=== PATIENT | female | born 1995 | race Caucasian/White ===

== ENCOUNTER 2019-07-28 09:27 | Emergency (ER) | payer SELFPAY ==
[2019-07-28 09:31] VITALS: BMI 24.3
--- NOTE | 2019-07-28 09:46 | XRR_ITS ---
PROCEDURE INFORMATION: Exam: XR Left Hand Exam date and time: 07/28/2019 10:09 AM Age: 24 years old Clinical indication: Injury or trauma; Injury history: Wood splitter; Initial encounter; Crushing; Hand; Left; Injury date: 07/28/19; Injury details: 3rd and 4th fingers; Additional info: Trauma to 3,4 finger TECHNIQUE: Imaging protocol: XR Left hand. Views: 3 or more views. COMPARISON: No relevant prior studies available. FINDINGS: Bones/joints: There are fractures of the tuft of the 3rd and 4th distal phalanges. There is a fracture at the base of the 4th distal phalanx which extends to the distal interphalangeal joint. The fractures are slightly displaced. No dislocation. Soft tissues: There is superficial soft tissue swelling of the distal 3rd and 4th fingers. XR/XR hand LT min 3V* [id number] IMPRESSION: 3rd and 4th distal phalangeal fractures.
--- NOTE | 2019-07-28 09:47 | ED_ITS ---
HPI - Wound/Laceration General: Chief Complaint: Wound/Laceration Stated Complaint: hand in log splitter Time Seen by Provider: 07/28/19 09:42 History of Present Illness: HPI narrative: Shannon is a 24-year-old white female who presents with a 30 minute history of accidentally getting her third and fourth fingers of her left hand caught in a wood splitter. She states she is up-to-date with her tetanus vaccine. Denies . Associated symptoms: Denies chills or fever(s) Review of Systems Const: Denies: fever or chills Eyes: Denies: change in vision ENMT: Denies: throat pain Card: Denies: chest pain or palpitations Resp: Denies: shortness of breath or productive cough : Denies: painful urination Musc: Reports: extremity pain; Denies: back pain Skin/Breast: Denies: rash Neuro: Denies: headache or numbness in extremities Psych: Denies: anxiety PFSH ED PFSH: Statuses (acute, chronic, etc) shown below reflect problem list status as previously entered and may not be historically accurate Social History Smoking and tobacco status: never smoked Physical Exam Const: COMMON NORMALS: average body habitus, oriented x3 and no limitations GENERAL APPEARANCE: in distress (mild distress due to pain) Eye: COMMON NORMALS: PERRL and EOMs intact bilaterally PUPIL: Yes PERRL Lymph: LYMPHATIC: no lymphadenopathy noted Chest: COMMONS NORMALS: inspection of chest normal Resp: COMMON NORMALS: normal respiratory effort and no retractions Cardio: COMMON NORMALS: regular rate and regular rhythm RATE: regular rate RHYTHM: regular rhythm Extremity: OTHER: The 4th finger nail is missing. Mild bruising noted to end of 3,4th fingers. I did offer the patient to put a suture at the base of her nail bed but she declines at this time. Copius saline irrigation of the wound. Dressings and Finger splints applied. Neuro: COMMON NORMALS: oriented x3 Course ED course: 0956: DIgital block of 3,4th fingers with 4cc of lidocaine per digit. x-ray shows fractures of distal phalanx of the third and fourth finger of the left hand. On examination there is no obvious closable wound, just crush injuries around the nail. Patient's fourth finger nail is completely avulsed and missing at this time. Her third finger nail is in place but appears to have a small subungual hematoma underneath it. Copious saline irrigation and dressings applied a finger. Contacted the single line referral to [facility] for hand surgeon follow-up for the patient. Dr. Peguero liaison inpatient given his number to call for follow-up. Patient states she is breast-feeding, discussed that hydrocodone and small to moderate doses is safe during breast-feeding. Vital Signs: Vital signs: Vital Signs Pulse Rate 60 07/28/19 11:42 Respiratory Rate 16 07/28/19 11:42 Blood Pressure 108/60 07/28/19 11:42 Pulse Oximetry 97 07/28/19 11:42 MDM - Wound/Laceration Differential Diagnosis: Wound Differential Diagnosis: Likely laceration (Laceration, crush injury, fracture) Imaging Data^: Other Xray: Attestation: I personally reviewed and interpreted this imaging study as follows: My impression: Fractures to distal phalanx of 3rd and 4th digit of the left hand. Discharge Plan Discharge Patient Disposition: Home, Self-Care Clinical Impression: Open fracture of tuft of distal phalanx of finger Crush injury of hand Qualifiers: Encounter type: initial encounter Laterality: left Qualified Code(s): S67.22XA - Crushing injury of left hand, initial encounter Condition: Stable Prescriptions: New [place] 5-325 mg tablet 1 tab PO Q6H PRN (Reason: pain) Qty: 15 RF: 0 Keflex 500 mg capsule 500 mg PO QID 7 Days Qty: 28 RF: 0 No Action iron 325 mg (65 mg iron) Tablet 325 mg PO DAILY RF: 0 multivitamin Tablet,Chewable 2 tab PO DAILY RF: 0 biotin 1 tab PO DAILY RF: 0 Referrals: Raul Callaway MD [Primary Care Provider] - Discharge Diet: Usual diet Discharge Activity: Limit activity as instructed Patient Instructions: Finger Fracture (ED), Toenail/Fingernail Removal (ED) Activity Restrictions/Additional Instructions: wash area with running water and soap twice a day and apply a thin layer of triple antibiotic ointment over nailbed and wounds. Cover with sterile dressing and apply finger splints. DO not soak in water. Use pain medication as needed as directed. Follow up with orthopedics in 2-[address] Nicole . CALL TODAY TO MAKE THIS APPOINTMENT Return if any problems. Discharge Date/Time: 07/28/19 11:44 Coding Level of Care Code ED Extractor Tender Raw Stock for Sin Peterson
[2019-07-28] MEDS: HYDROcodone-acetaminophen 5-325 mg Tablet 1 TAB PO ×2 (09:56→11:39)
[2019-07-28] MEDS: lidocaine 1% INJ 20 mL INTRADERMA (09:57)
[2019-07-28] MEDS: neomycin-poly-bacitracin oint 0.9 gm Pkt 1 APPLIC TOPICAL (11:25)
[2019-07-28 11:42] VITALS: BP 108/60; PULSE 60; RESP 16; O2SAT 97
== END 2019-07-28 12:38 | disposition home or self-care (01) ==
PROVIDERS: Emergency Provider Physician Assistant; Family Provider Obstetrics & Gynecology; PCP Obstetrics & Gynecology
DX: S62.635B Displaced fracture of distal phalanx of left ring finger, initial encounter for open fracture (principal); S62.633B Displaced fracture of distal phalanx of left middle finger, initial encounter for open fracture; S67.22XA Crushing injury of left hand, initial encounter; W31.89XA Contact with other specified machinery, initial encounter
CPT/HCPCS: 73130; 99281; J2001

== ENCOUNTER 2022-05-29 16:02 | Outpatient (CLI) | payer SELFPAY ==
[2022-05-29] VITALS (9 sets, daily range): BP systolic 107–115; BP diastolic 59–71; PULSE 75–86; RESP 15; BMI 27.2
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
[2022-05-29 17:53] LABS: Bilirubin Urine Neg (Negative); Blood Urine Neg (Negative); Glucose Urine UA Norm (Normal); Ketones Urine 1+ (Negative); Leukocyte Esterase Urine Negative (Negative); Nitrate Urine Negative (Negative); Protein Urine Neg (Negative); Urine Appearance Clear (CLEAR); Urine Color Yellow (Yellow); Urobilinogen Urine Neg (Negative); pH Urine 6 (5-7)
[2022-05-29 17:55] LABS: Amphetamines Screen Urine Negative (Negative); Barbiturates Screen Urine Negative (Negative); Benzodiazepines Screen Urine Negative (Negative); Cocaine Screen Urine Negative (Negative); Opiate Screen Urine Negative (Negative); PCP Screen Urine Negative (Negative); THC Screen Urine Positive (Negative)
[2022-05-29 17:56] LABS: Add Urine Culture? No; WBC Urine 0-4 /hpf (0-5)
[2022-05-29 19:08] LABS: HIV 1 & 2 Antibody Non-Reactive (Non-Reactiv); HIV 1 & 2 Antigen Non-Reactive (Non-Reactiv)
[2022-05-29 21:35] LABS: Rubella IgG 34.2 IU/mL (0.0-10.0)
[2022-05-29 21:38] LABS: Hepatitis B Surface Antigen Non-Reactive (Nonreactive); Hepatitis C Virus Antibody Non-Reactive (Nonreactive); Rapid Plasma Reagin Syphilis Nonreactive (Nonreactive)
== END 2022-05-29 18:48 | disposition home or self-care (01) ==
LOC: OPOB 16:02 → OBGYN 16:17
PROVIDERS: Family Provider Obstetrics & Gynecology; PCP Obstetrics & Gynecology; Visit Provider Obstetrics & Gynecology
DX: O09.33 Supervision of pregnancy with insufficient antenatal care, third trimester (principal); Z3A.31 31 weeks gestation of pregnancy; R10.9 Unspecified abdominal pain; Z91.410 Personal history of adult physical and sexual abuse
CPT/HCPCS: 12345; 36415; 59025; 80306; 81001; 86592; 86762; 86803; 86850; 86900; 87340; 87491; 87591; 87806; 99211

== ENCOUNTER → 2022-06-15 15:00 | Outpatient (BNVA) | payer SELFPAY | PROVIDERS: Family Provider Obstetrics & Gynecology; PCP Obstetrics & Gynecology; Visit Provider Family Medicine | DX: O09.93 Supervision of high risk pregnancy, unspecified, third trimester (principal); O26.899 Other specified pregnancy related conditions, unspecified trimester; R10.9 Unspecified abdominal pain; O09.30 Supervision of pregnancy with insufficient antenatal care, unspecified trimester; Z3A.31 31 weeks gestation of pregnancy; R30.0 Dysuria; Z51.81 Encounter for therapeutic drug level monitoring | CPT/HCPCS: 82950; 84443; 85025; 87077; 87086; 87184 ==

== ENCOUNTER 2022-06-30 07:14 | Outpatient (CLI) | payer MEDICAID, SELFPAY ==
--- NOTE | 2022-06-30 07:15 | US_ITS ---
WS: [id number] OBSTETRICAL ULTRASOUND COMPLETE HISTORY: Anatomy US COMPARISON: None available. Single intrauterine gestation in vertex. presentation. Cervix is partially obscured by the head. Normal amount of amniotic fluid surrounds the fetus. Placenta: Fundal and posterior. Placenta grade 1 Heart: 144 BPM. Four chambers are identified. RIGHT and LEFT outflow tracts are unremarkable. Anatomy: Intracranial structures and spine are normal. kidneys, stomach and urinary bladd er are unremarkable. Abdominal wall, three-vessel cord and cord insertion site are normal. 4 extremities are present. profile: Unremarkable. Gender: Not visualized. measurements: BPD = 8.7 cm = 35w2d HC = 33.7 cm = 38w4d AC = 32.0 cm = 35w6d FL = 7.3 cm = 37w2d EFW: 2951 g. Biometry is internally concordant. AGA by ultrasound: 36w3d FLACO by ultrasound: 07/25/2022 US/US OB >= 14 weeks fetus [id number] IMPRESSION: 1. Single intrauterine gestation of 36w3d with an FLACO of 07/25/2022. 2. Suboptimal gestational age for anatomy screening survey. The anatomy visualized is normal. No abnormalities are identified.
== END 2022-06-30 07:15 | disposition home or self-care (01) ==
LOC: RAD 07:14
PROVIDERS: Family Provider Obstetrics & Gynecology; PCP Obstetrics & Gynecology; Visit Provider Family Medicine
DX: Z36.89 Encounter for other specified antenatal screening (principal); Z3A.36 36 weeks gestation of pregnancy; O09.93 Supervision of high risk pregnancy, unspecified, third trimester
CPT/HCPCS: 76805; 84443

== ENCOUNTER → 2022-07-04 14:50 | Outpatient (BNVA) | payer MEDICAID, SELFPAY | PROVIDERS: Family Provider Obstetrics & Gynecology; PCP Obstetrics & Gynecology; Visit Provider Family Medicine | DX: O09.93 Supervision of high risk pregnancy, unspecified, third trimester (principal) | CPT/HCPCS: 87081 ==

== ENCOUNTER → 2022-07-25 16:25 | Outpatient (BNVA) | payer MEDICAID, SELFPAY | PROVIDERS: Family Provider Obstetrics & Gynecology; PCP Obstetrics & Gynecology; Visit Provider Family Medicine | DX: Z34.90 Encounter for supervision of normal pregnancy, unspecified, unspecified trimester (principal) | CPT/HCPCS: 80307 ==

== ENCOUNTER 2022-08-04 06:00 | Inpatient (IN) | payer SELFPAY ==
[2022-08-04] VITALS (24 sets, daily range): BP systolic 96–138; BP diastolic 55–79; PULSE 63–175; RESP 15–17; TEMP 36.6–36.9; O2SAT 83–98; BMI 28.1
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
[2022-08-04] MEDS: miSOPROStol 100 mcg tablet 25 MCG VAGINAL ×2 (08:16→12:18)
[2022-08-04 08:50] LABS: Amphetamines Screen Urine Negative (Negative); Barbiturates Screen Urine Negative (Negative); Benzodiazepines Screen Urine Negative (Negative); Cocaine Screen Urine Negative (Negative); Opiate Screen Urine Negative (Negative); PCP Screen Urine Negative (Negative); THC Screen Urine Positive (Negative)
[2022-08-04 09:14] LABS: Basophils % 0.2 %; Eosinophils # 0.1 10^3/uL (0.0-0.8); Eosinophils % 0.4 %; Hematocrit 35.6 % (37.0-47.0); Hemoglobin 11.5 g/dL (11.5-15.3); Lymphocytes # 2.8 10^3/uL (0.8-4.8); Lymphocytes % 22.4 %; Mean Corpuscular HGB Conc 32.3 g/dL (30.0-36.0); Mean Corpuscular Volume 89.7 fl (81-99); Mean Platelet Volume 13.1 fL (7.4-10.4); Monocytes # 0.9 10^3/uL (0.2-0.9); Monocytes % 7.3 %; Neutrophils # 8.71 10^3/uL (1.8-7.7); Neutrophils % 69.3 %; Nucleated Red Blood Cells % 0 %; Platelet Count 173 10^3/cmm (130-400); Red Blood Count 3.97 10^6/uL (4.1-5.3); Red Cell Distribution Width 13.1 % (12.1-15.1); White Blood Count 12.6 10^3/uL (4.0-10.0)
[2022-08-04 10:40] LABS: Slide Review Slide Review Perform
[2022-08-04] MEDS: butorphanol 2 mg/mL SDV 1 mL 1 MG IVP (15:30)
[2022-08-04] MEDS: lactated ringers 1,000 ML 999 ML IV (15:58)
--- NOTE | 2022-08-04 16:56 | ANES.PROC ---
Anesthesia Procedures Procedure/Date: 08/04/22 Epidural: Time Out Performed: Yes Consents Signed: Procedure Consent Consent: requested by attending/covering physician, from patient, risks and benefits reviewed and patient agrees to proceed Lumbar Level: L2-L3 Epidural position: sitting Epidural procedure: sterile prep of area, 1% lidocaine to numb the area, 18 g needle, neg for paresthesia, test dose given, 1.5% xylocaine 1:200k epi (5cc), 0.2% Ropivacaine bolus ml (5cc bolus), placed PCEA, no systemic response, sterile dressing applied, L.U.D. no apparent complications and 0.2% Ropiavacaine @ mls/hr (13cc/hour) Additional Comments: GEM at 7cm. threaded 3 cm into epidural space. 5cc Ropiv bolus given. Pt tolerated well
--- NOTE | 2022-08-04 17:01 | ANES.PREANE2 ---
Pre-Anesthetic Assessment Height/Weight: Height 1.78 m Weight 88.904 kg Pulse Resp BP Pulse Ox O2 Del Method 64 17 138/58 98 08/04/22 16:59 08/04/22 07:00 08/04/22 16:59 08/04/22 16:55 08/04/22 07:00 Preop Diagnosis: Labor pain ANGELICA Was Beta Ingrid taken within 24 hours: N/A Was Clonidine taken within 24 hours: N/A Social Marijuana Exam alert, oriented x 3, clear to auscultation bilaterally and regular rate & rhythm Airway Submandibular: within normal limits Cervical ROM: within normal limits Mallampati: Class II Dentition: full History/ROS No significant history except as noted and No significant complaints Pulmonary None reported CV/HEM None reported None reported Hepatic None reported GI None reported Metabolic None reported Musc/skel None reported Neuropsych None reported Anesthetic Plan ASA status: 2 Anesthesia: Anesthesia Evaluation and Regional (specify below) Other: ANGELICA Risk of > 500 ml blood loss (7ml/kg in children): No Medications/Allergies Home Medications Medication Instructions Recorded Confirmed Last Taken Type prenat vit 86-ipnn-dmxov-om3,6 1 tab PO DAILY 05/29/22 08/04/22 08/02/22 History Allergies Allergy/AdvReac Type Severity Reaction Status Date / Time amoxicillin [From Augmentin] Allergy Unknown Verified 08/04/22 06:26 clavulanic acid Allergy Unknown Verified 08/04/22 06:26 [From Augmentin] Current Medications Generic Name Dose Route Start Last Admin Trade Name Freq PRN Reason Stop Dose Admin Butorphanol Tartrate 1 mg 08/04/22 06:30 08/04/22 15:30 Butorphanol 2 Mg/Ml Sdv 1 Ml IVP 1 mg Q2H PRN Administration SEVERE PAIN Lactated Ringer's 1,000 mls @ 999 mls/hr 08/04/22 15:33 08/04/22 15:58 Lactated Ringers IV 999 mls/hr .Q1H1M PRN Administration See label comments PFSH Anesthesia Surgical History Hx of tonsillectomy Social History Smoking and tobacco status: never smoked Alcohol intake: never Female Reproductive History : 3 Data Anesthesia 08/04/22 07:25 Short CBC 08/04/22 Range/Units 07:25 WBC 12.6 H (4.0-10.0) 10^3/uL Hgb 11.5 (11.5-15.3) g/dL Hct 35.6 L (37.0-47.0) % MCV 89.7 (81-99) fl Plt Count 173 (130-400) 10^3/cmm Neut % (Auto) 69.3 % Neut # (Auto) 8.71 H (1.8-7.7) 10^3/uL Cardiac Studies: No Data to Display
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
[2022-08-04] MEDS: ibuprofen 800 mg tablet PO (20:59)
[2022-08-04] MEDS: docusate sodium 100 mg Capsule PO (20:59)
[2022-08-05] VITALS (17 sets, daily range): BP systolic 106–118; BP diastolic 62–83; PULSE 61–96; RESP 15–20; TEMP 36.3–37.1; O2SAT 95–100
[2022-08-05] MEDS: HYDROcodone-acetaminophen 5-325 mg Tablet PO ×3 (02:31→22:21)
[2022-08-05 06:04] LABS: Hematocrit 33.5 % (37.0-47.0); Hemoglobin 10.8 g/dL (11.5-15.3); Mean Corpuscular HGB Conc 32.2 g/dL (30.0-36.0); Mean Corpuscular Volume 89.8 fl (81-99); Mean Platelet Volume 12.3 fL (7.4-10.4); Platelet Count 141 10^3/cmm (130-400); Red Blood Count 3.73 10^6/uL (4.1-5.3); Red Cell Distribution Width 13.2 % (12.1-15.1); White Blood Count 16.4 10^3/uL (4.0-10.0)
--- NOTE | 2022-08-05 10:02 | ANE.PACU2 ---
Inpatient post-anesthesia follow up: Airway intact: Yes Vital signs: Temperature 98.0 F Pulse Rate 79 Respiratory Rate 18 Blood Pressure 114/76 Pulse Oximetry 99 Oxygen Delivery Me thod Room Air Oxygen Flow Rate Fraction of Inspir ed Oxygen Hydration adequate: Yes Nausea and vomiting: No Pain level: 2 Mental status: Baseline
--- NOTE | 2022-08-05 12:10 | PM.PN ---
Subjective Subjective: The patient is doing well from the standpoint of her bleeding. It is decreasing. Her pain is currently well controlled. She does state that she has been having some depressive issues and that she had depression after her last . She also states that she has a history of very high highs and low lows as well as episodes of spending too much money in relation to this. She has never been on any medication for this in the past. She does not have any known diagnosis of bipolar or schizophrenia. She denies hearing voices. She would like to try medication to help treat this. Vitals/I&O/Wt Last Vital Signs Temp 98.0 F 08/05/22 09:31 Pulse 79 08/05/22 09:31 Resp 18 08/05/22 09:31 BP 114/76 08/05/22 09:31 Pulse Ox 99 08/05/22 09:31 O2 Del Method 08/05/22 09:31 Weight last 48 hrs Weight 196 lb Physical Exam Narrative: General: Alert and oriented x3 Cardiac: Regular rate and rhythm without murmurs Lungs: Clear to auscultation bilaterally without wheezes, crackles or rhonchi Abdomen: Soft, mild tenderness over uterus. The uterus is firm and 2 cm below the umbilicus. Extremities: Trace edema in the bilateral lower extremities Psychiatric: Quiet at times. Open to counseling. I do not perceive suicidal ideation or homicidal ideation at this time. Good focus. Data 08/05/22 05:55 A&P Assessment and plan (1) Depression: The patient has a history of depression but never sought out care. She also has symptoms that are concerning for bipolar based on her history. Because of this we discussed the recommendations to try both an SSRI for her depression as well as a mood stabilizer. Since she is breast-feeding, we will start with Seroquel to help with sleep at night and Zoloft to help with depression. I discussed the possible side effects of feeling more fatigued and tired for the first week to 10 days and that close follow-up is needed to be sure that she is doing well with these medications. Her significant other was present for the exam and seemed engaged in terms of helping her through this. I did bring up the possibility of BHC if needed and that this could be helpful with therapy as well as medication treatment if needed. The patient is not showing signs of active suicidal ideation or homicidal ideation. I do not perceive any signs of schizophrenia clinically. (2) Spontaneous vaginal delivery: The patient is doing well after her delivery. She will be getting a bilateral tubal ligation shortly. We will plan to see how she does overnight and if doing well consider discharge home tomorrow. She will need close follow-up in clinic to be sure that things are improving as well. Attestations Medical Necessity Statement*: The patient will be here for greater than 2 midnights due to routine intrapartum and management of labor and delivery. Coding Level of Care Code Acute Code for Chg Fwd Diagnoses Depression F32.A Spontaneous vaginal delivery O80 Time Spent (min) 30
--- NOTE | 2022-08-05 13:28 | P.PN_ITS ---
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: Interval history: August 05, 2022, 1135 Patient s/p August 04, 2022 Desires permanent sterilization States does not want reversible control Understands irreversibility of procedure Understands that sterilization is intended to be permanent and irreversible Plan proceed with bilateral partial salpingectomy Procedure and risks explained, including risks of infection, bleeding, injury to internal organs, anesthesia, blood transfusions Patient understands and wants to proceed Labor: Station: -1 Amniotic Membrane Status: Ruptured Monitor Mode: External Contraction Pattern: Regular Vitals/I&O/Wt Last Vital Signs Temp 98.0 F 08/05/22 09:31 Pulse 79 08/05/22 09:31 Resp 18 08/05/22 09:31 BP 114/76 08/05/22 09:31 Pulse Ox 99 08/05/22 09:31 O2 Del Method 08/05/22 09:31 Weight last 48 hrs Weight 196 lb Data 08/05/22 05:55 A&P Assessment and plan (1) Spontaneous vaginal delivery: (2) Request for sterilization: Attestations Medical Necessity Statement*: patient s/p desires permanent sterilization Coding Level of Care Code Acute Code for Chg Fwd Diagnoses Spontaneous vaginal delivery O80 Request for sterilization Z30.2
--- NOTE | 2022-08-05 13:58 | P.ANESUD_ITS ---
Pre-Anesthetic Update Pre-Anesthetic Assessment: Date of Surgery/Procedure: 08/05/22 Preop [place] gnosis: Labor pain Proposed Procedure: Operation Date: 08/05/22 10:10 Proposed Procedures p Post Bilateral Tubal Ligation(Bilateral) - Manuel Tanner MD Operation Date: 08/05/22 14:00 Proposed Procedures p Post Bilateral Tubal Ligation(Not Applicable) - Manuel Tanner MD Any changes to Pre-Anesthetic Assessment?: No Labs Last 48hrs: Short CBC 08/04/22 08/05/22 Range/Units 07:25 05:55 WBC 12.6 H 16.4 H (4.0-10.0) 10^3/ uL Hgb 11.5 10.8 L (11.5-15.3) g/dL Hct 35.6 L 33.5 L (37.0-47.0) % MCV 89.7 89.8 (81-99) fl Plt Count 173 141 (130-400) 10^3/c mm Neut % (Auto) 69.3 % Neut # (Auto) 8.71 H (1.8-7.7) 10^3/u L Vitals: Temperature 98.0 F 08/05/22 09:31 Temperature Source Axillary 08/05/22 05:22 Pulse Rate 79 08/05/22 09:31 Respiratory Rate 18 08/05/22 09:31 Respiratory Effort Non-Labored 08/04/22 07:00 Respiratory Depth Normal 08/04/22 07:00 Respiratory Patter n 08/04/22 07:00 Blood Pressure 114/76 08/05/22 09:31 Blood Pressure Eleanor n 88 08/05/22 09:31 Blood Pressure Pos ition Semi Fowlers 08/05/22 09:31 Pulse Oximetry 99 08/05/22 09:31 Oxygen Delivery Me thod 08/05/22 09:31 Exam: Pre-Anes Outpt Exam: alert, oriented x 3, clear to auscultation bilaterally and regular rate & rhythm Other Pertinent Information: Other Pertinent Information: GA for PPBTL Cardiac Studies: No Data to Display
[2022-08-05] MEDS: sodium chloride 0.9% 1,000 ML 30 ML IV (14:06)
[2022-08-05] MEDS: HYDROmorphone 1 mg/mL INJ 1 mL 0.5 MG IVP (15:09)
[2022-08-05] MEDS: ondansetron 2 mg/ML SDV 2 mL 4 MG IVP (15:12)
--- NOTE | 2022-08-05 15:15 | P.PCN_ITS ---
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
--- NOTE | 2022-08-05 15:15 | PM.PACU ---
PACU note Narrative: VSS, Good respiratory effort, report to GLASS ARTIST Exam: awake
--- NOTE | 2022-08-05 17:52 | ANE.PACU2 ---
Inpatient post-anesthesia follow up: Airway intact: Yes Vital signs: Temperature 98.7 F Pulse Rate 89 Respiratory Rate 16 Blood Pressure 112/83 Pulse Oximetry 98 Oxygen Delivery Me thod Room Air Oxygen Flow Rate 6 Fraction of Inspir ed Oxygen Hydration adequate: Yes Nausea and vomiting: No Pain level: 2 Mental status: Baseline
[2022-08-05] MEDS: docusate sodium 100 mg Capsule PO (17:54)
[2022-08-05] MEDS: quetiapine 25 mg Tablet PO (21:02)
[2022-08-05] MEDS: ibuprofen 800 mg tablet PO (21:02)
[2022-08-06 04:37] VITALS: BP 91/62; PULSE 63; RESP 16; TEMP 36.7; O2SAT 97
[2022-08-06] MEDS: HYDROcodone-acetaminophen 5-325 mg Tablet PO (04:39)
--- NOTE | 2022-08-06 06:51 | PM.OBGYPN ---
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 bilateral partial salpingectomy Surgeon:?Dr. Tanner Anesthesia:? General EBL:?none Complications:? none Labor: Station: -1 Amniotic Membrane Status: Ruptured Monitor Mode: External Contraction Pattern: Regular Vitals/I&O/Wt Last Vital Signs Temp 98.1 F 08/06/22 04:37 Pulse 63 08/06/22 04:37 Resp 16 08/06/22 04:37 BP 91/62 08/06/22 04:37 Pulse Ox 97 08/06/22 04:37 O2 Del Method 08/06/22 04:37 O2 Flow Rate 6 08/05/22 14:58 08/05/22 08/05/22 08/06/22 14:59 22:59 06:59 Intake Total 0 / 0 50 / 50 Output Total 5 / 5 Balance -5 / -5 50 / 45 Data 08/05/22 05:55 A&P Assessment and plan (1) Spontaneous vaginal delivery: (2) Request for sterilization: Attestations Medical Necessity Statement*: patient desires permanent sterilization. Coding Level of Care Code Acute Code for Chg Fwd Diagnoses Spontaneous vaginal delivery O80 Request for sterilization Z30.2
--- NOTE | 2022-08-06 06:53 | PM.OP ---
Operative Report Date of procedure: August 05, 2022 Pre-op diagnosis: Preop Diagnosis desires permanent sterilization Post-op diagnosis: Same as above Procedure done: August 05, 2022, 1445 OP NOTE Patient taken to the OR.? Timeout for bilateral partial salpingectomy done.? General anesthesia was administered.? Abdomen was prepped and draped in the sterile fashion.? A 5 cm subumbilical skin incision was made.? The incision was carried down through fascia and peritoneum was entered bluntly.? The fundus of the uterus was noted approximately one cm below incision.? The right fallopian tube was identified to its fimbrial end.? An opening was made in the mesosalpinx with the bovie.? A 2-O chromic suture ligature was placed at the proximal and distal ends of the right fallopian tube.? A 3-4 cm segment of the right fallopian tube was excised with Metzenbaum scissors and sent to pathology.? The proximal and distal ends of the fallopian tube were cauterized with the bovie.? No bleeding was noted.? Similarly, the left fallopian tube was identified to its fimbrial end.? An opening was made in the mesosalpinx with the bovie.? A 2-O chromic suture ligature was placed at the proximal and distal ends of the left fallopian tube.? A 3-4 cm segment of the left fallopian tube was excised with Metzenbaum scissors and sent to pathology.? The proximal and distal ends of the left fallopian tube were cauterized with the bovie.? No bleeding was seen. The fascia was then closed with O-Vicryl suture.? The skin was re-approximated with 4-O Vicryl.? The subcutaneous tissue was infiltrated with 5 cc of Lidocaine !%.? Dermabond was applied The patient was then awakened and taken to the recovery room Postoperative condition:? stable EBL:?? none Complications:?? none Sponge, instruments, and needles counts correct x two Specimens removed/disposition: bilateral fallopian tube segments Surgeon: Manuel Tanner MD Estimated blood loss: none Complications: none Procedure: see above
--- NOTE | 2022-08-06 08:46 | P.DS_ITS ---
Discharge Providers Date of Admission: 08/04/22 06:00 Date of Discharge: August 06, 2022 Attending Provider at Admission: Santosh Garcia MD Attending Provider at Discharge: Santosh Garcia MD Primary Care Provider: Raul Callaway MD Diagnoses at Discharge Discharge Diagnosis (1) Spontaneous vaginal delivery: Status: Acute (2) Request for sterilization: Status: Acute Other Information Additional DC diagnoses/information: 1.? Intrauterine status post spontaneous vaginal delivery at 41.2 weeks gestation 2.? Late establish care at 34 weeks gestation 3.? THC positive 4.? History of precipitous deliveries 5.? Postdates 6.? Delivery of healthy infant female weighing 8 pounds 3 ounces with Apgars of 8 and 9? Reason for Visit Reason for Visit: INDUCTION OF LABOR Brief History: Shannon Smith is a 27 year old G3 now P3 status post spontaneous vaginal delivery @ 41.2 weeks by 20 wk US done in . Preg was c/b late establish care (34 wks), THC positive, h/o precipitous deliveries, postdates . The patient was admitted to labor and delivery for induction of labor due to postdates.? The patient was 1 cm dilated upon admission and was given Cytotec.? After 1 dose that she was 2 cm dilated but continued to be relatively thick, so a second dose was given.? With the second dose of Cytotec, she began to have regular contractions every 2 to 3 minutes.? She then began to make steady and then rapid change.? She received a laboring epidural shortly before delivery.? The patient had spontaneous rupture of membranes at approximately 1650 on 08/04/2022.? The fluid was noted to be clear. Hospital Course Hospital Course The patient was complete by approximately 1705 on 08/04/2022.? The patient began pushing at the same time and the descended rapidly.? The was born in the OA position at 1706 on 08/04/2022.? The right shoulder was anterior shoulder and it delivered with ease.? The rest of the delivered without complication.? The 's mouth and nose were bulb suctioned by myself and the infant began crying shortly after delivery.? The infant was then placed on the mother's chest where the nurses were waiting to care for her.? The cord was clamped after approximately 1 minute and cut by the 's grandmother.? Cord blood was obtained.? The cord was then drained of blood and traction was placed on the umbilical cord.? The placenta delivered without complication at 1711 on 08/04/2022.? The placenta was noted to be intact with a central umbilical cord insertion site.? The cervix was inspected and no lacerations were noted.? The vaginal wall was inspected and no lacerations were noted.? There was a very tiny abrasion in the perineal region.? No suturing was needed.? The patient had mild bleeding . The patient had a bilateral tubal ligation done by Dr. Tanner on 08/05/2022. Postoperatively the patient is feeling well. Her pain is currently well controlled by oral medications. The patient also states that she had troubles with depression after her prior . She describes symptoms that were concerning for possible bipolar. Due to these findings, we discussed medication options and she requested to start medication. She was started on Seroquel 25 mg at bedtime and will take sertraline 25 mg each morning. We will follow-up with her closely to be sure that she is doing well with these medications. We discussed possible risk factors and that small amounts to pass through the breastmilk but that they are commonly used in when needed. The patient slept well with the Seroquel last night and had no side effects. Recommendations for [facility] were discussed. the patient is doing well otherwise. Her bleeding is decreasing well. She is ambulating, voiding, passing gas and tolerating food by mouth. Routine discharge instructions were discussed. All questions were answered. The patient is in agreement with discharge home at this time. Physical Exam Narrative: General: Alert and oriented x3 Cardiac: Regular rate and rhythm without murmurs Lungs: Clear to auscultation bilaterally without wheezes, crackles or rhonchi Abdomen: Soft, mild to moderate tenderness over uterus. No rebound tenderness. The uterus is firm and 2 cm below the umbilicus. Extremities: Trace edema in the bilateral lower extremities Discharge Data Studies Completed and Pending Pending at discharge Category Date Time Status Pathology: Surgical [PTH] Routine Pth 08/05/22 15:03 Ordered Laboratory Results WBC 16.4 10^3/uL (4.0-10.0) H 08/05/22 05:55 RBC 3.73 10^6/uL (4.1-5.3) L 08/05/22 05:55 Hgb 10.8 g/dL (11.5-15.3) L 08/05/22 05:55 Hct 33.5 % (37.0-47.0) L 08/05/22 05:55 MCV 89.8 fl (81-99) 08/05/22 05:55 MCH 29.0 pg (28.0-34.0) 08/05/22 05:55 MCHC 32.2 g/dL (30.0-36.0) 08/05/22 05:55 RDW 13.2 % (12.1-15.1) 08/05/22 05:55 Plt Count 141 10^3/cmm (130-400) 08/05/22 05:55 MPV 12.3 fL (7.4-10.4) H 08/05/22 05:55 Neut % (Auto) 69.3 % 08/04/22 07:25 Lymph % (Auto) 22.4 % 08/04/22 07:25 [place] % (Auto) 7.3 % 08/04/22 07:25 Eos % (Auto) 0.4 % 08/04/22 07:25 Baso % (Auto) 0.2 % 08/04/22 07:25 Neut # (Auto) 8.71 10^3/uL (1.8-7.7) H 08/04/22 07:25 Lymph # (Auto) 2.8 10^3/uL (0.8-4.8) 08/04/22 07:25 [place] # (Auto) 0.9 10^3/uL (0.2-0.9) 08/04/22 07:25 Eos # (Auto) 0.1 10^3/uL (0.0-0.8) 08/04/22 07:25 Baso # (Auto) 0.0 10^3/uL (0.0-0.1) 08/04/22 07:25 Nucleated RBC % (auto) 0 % 08/04/22 07:25 Nucleated RBCs # 0.0 /100WBC 08/04/22 07:25 Urine Opiates Screen Negative ng/mL (Negative) 08/04/22 06:00 Ur Barbiturates Screen Negative ng/mL (Negative) 08/04/22 06:00 Ur Phencyclidine Scrn Negative ng/mL (Negative) 08/04/22 06:00 Ur Amphetamines Screen Negative ng/mL (Negative) 08/04/22 06:00 U Benzodiazepines Scrn Negative ng/mL (Negative) 08/04/22 06:00 Urine Cocaine Screen Negative ng/mL (Negative) 08/04/22 06:00 U Marijuana (THC) Screen Positive ng/mL (Negative) H 08/04/22 06:00 Vitals Last Vital Signs Temp 98.1 F 08/06/22 04:37 Pulse 63 08/06/22 04:37 Resp 16 08/06/22 04:37 BP 91/62 08/06/22 04:37 Pulse Ox 97 08/06/22 04:37 O2 Del Method 08/06/22 04:37 O2 Flow Rate 6 08/05/22 14:58 Discharge Plan Discharge Patient Disposition: Home Condition: Stable Prescriptions: New hydrocodone-acetaminophen 5-325 mg Tablet 1 tab PO Q6H PRN (Reason: Moderate To Severe Pain) Qty: 20 0RF ibuprofen 800 mg Tablet 800 mg PO TID Qty: 60 0RF quetiapine 25 mg Tablet 25 mg PO BEDTIME Qty: 30 1RF sertraline 50 mg Tablet 25 mg PO DAILY Qty: 30 1RF ferrous sulfate 325 mg (65 mg iron) tablet 325 mg PO BID Qty: 30 0RF Continued prenat vit 39-[id number]-[id number]-om3,6 1 tab PO DAILY Discharge Orders: Discharge Order (Routine); Ordered 08/06/22 Ordered By: Santosh Garcia Referrals: Santosh Garcia MD [Physician] - 1-3 days (Okay to schedule with infant's appt. ) Discharge Diet: Regular Discharge Activity: Limit activity as instructed Patient Instructions: Opioid Safety Activity Restrictions/Additional Instructions: Do not lift over 15 pounds for the first 2 weeks, then gradually increase. Nothing per vagina for 6 weeks. I recommend showers instead of baths until bleeding stops. Discharge Attestations Time Spent in Discharge Care*: greater than 30 min Quality Metrics Clinical Quality Measures [ No reported AMI, CVA or VTE this stay] Coding Level of Care Code Acute Code for Chg Fwd Diagnoses Spontaneous vaginal delivery O80 Request for sterilization Z30.2
[2022-08-06] MEDS: ibuprofen 800 mg tablet PO (09:50)
[2022-08-06] MEDS: prenatal vitamin Capsule 1 CAP PO (09:50)
[2022-08-06] MEDS: docusate sodium 100 mg Capsule PO (09:50)
[2022-08-06] MEDS: sertraline 50 mg Tablet 25 MG PO (09:50)
[2022-08-06 14:30] VITALS: BP 114/69; PULSE 79; RESP 16; TEMP 36.7
== END 2022-08-06 14:50 | disposition home or self-care (01) | DRG 797 ==
PROVIDERS: Obstetrics & Gynecology; Admitting Provider Family Medicine; Family Provider Obstetrics & Gynecology; PCP Obstetrics & Gynecology; Visit Provider Family Medicine
PROC: 0UB70ZZ Excision of Bilateral Fallopian Tubes, Open Approach (ICD-10-PCS; CPT 58605; principal; 2022-08-05 14:00)
DX: O48.0 Post-term pregnancy (principal); O99.324 Drug use complicating childbirth; Z37.0 Single live birth; Z3A.41 41 weeks gestation of pregnancy; F12.90 Cannabis use, unspecified, uncomplicated; O99.344 Other mental disorders complicating childbirth; F32.A Depression, unspecified; Z30.2 Encounter for sterilization
CPT/HCPCS: 12345; 36415; 59025; 59409; 80306; 85025; 85027; 88302; 96374; J0330; J0595; J1170; J2405; J2704; J3010; J3490; J7030; J7120

== ENCOUNTER → 2022-10-06 10:46 | Outpatient (BNVA) | payer SELFPAY | PROVIDERS: Family Provider Obstetrics & Gynecology; PCP Obstetrics & Gynecology; Visit Provider Clinical Nurse Specialist Adult Health | DX: R35.0 Frequency of micturition (principal); N39.0 Urinary tract infection, site not specified | CPT/HCPCS: 81000; 87077; 87086; 87184 ==

== ENCOUNTER 2023-07-23 18:35 | Emergency (ER) | payer MEDICAID, SELFPAY ==
[2023-07-23 18:42] VITALS: BP 84/52; PULSE 78; RESP 16; TEMP 36.6; O2SAT 98; BMI 21.5
--- NOTE | 2023-07-23 18:58 | CTR_ITS ---
PROCEDURE INFORMATION: Exam: CT Head Without Contrast Exam date and time: 07/23/2023 7:36 PM Age: 28 years old Clinical indication: Pain; Headache; Migraine; Aura effect not specified; Does not respond to medication; Severity not specified; Additional info: Sever headache TECHNIQUE: Imaging protocol: Computed tomography of the head without contrast. Radiation optimization: All CT scans at this facility use at least one of these dose optimization techniques: automated exposure control; mA and/or kV adjustment per patient size (includes targeted exams where dose is matched to clinical indication); or iterative reconstruction. COMPARISON: No relevant prior studies available. RADIATION DOSE METRICS: Total DLP (mGy-cm): 1118 FINDINGS: Brain: Normal. No hemorrhage. Unremarkable white matter. No mass effect. Cerebral ventricles: No ventriculomegaly. Paranasal sinuses: Visualized sinuses are unremarkable. No fluid levels. Mastoid air cells: Visualized mastoid air cells are well aerated. Bones/joints: Unremarkable. No acute fracture. Soft tissues: Unremarkable. CT/CT head wo con* [id number] IMPRESSION: No acute intracranial abnormality.
--- NOTE | 2023-07-23 18:59 | W.ED.HA ---
HPI - Headache General: Chief Complaint: Headache Stated Complaint: bilateral eye pain, n/v, congestion Time Seen by Provider: 07/23/23 18:52 History of Present Illness: 28-year-old female comes in today with complaints of headache and dental pain. Patient reports dental pain to the right lower jaw third molar. Patient also has some mild pain to her left lower jaw. Patient states that her jaw feels swollen in that area. No obvious swelling is noted. Patient does appear in moderate pain. Patient appears mildly unwell but not toxic. Review of Systems General: Reports: 10 or more systems reviewed and unremarkable except in HPI and below PFSH ED PFSH: Surgical History History of tubal ligation 08/05/22 - Dr Tanner Hx of tonsillectomy Social History (Updated 10/17/22 @ 08:47 by Alisha Flores LPN) Substance/Drug Use: former Physical Exam Const: COMMON NORMALS: alert HENMT: COMMON NORMALS: normocephalic HEAD & SCALP: normocephalic MOUTH: Normal oral and palatal mucosa present TEETH & GINGIVA: Yes gingiva abnormal (Mild gingival swelling and erythema to the right lower third molar) Neck/C-Spine: COMMON NORMALS: full ROM and no meningeal signs Resp: COMMON NORMALS: normal respiratory effort and clear to auscultation bilaterally AUSCULTATION: clear to auscultation bilaterally Cardio: COMMON NORMALS: regular rate and regular rhythm RATE: regular rate RHYTHM: regular rhythm GI: COMMON NORMALS: Soft to palpation PALPATION: Yes Soft to palpation Back/Pelvis: COMMON NORMALS: thoracic and lumbar spine normal to inspection Extremity: COMMON NORMALS: capillary refill normal Neuro: SENSORIUM/ORIENTATION: Yes alert MENINGEAL SIGNS: Yes no meningeal signs Skin: COMMON NORMALS: turgor normal GENERAL SKIN EXAM: turgor normal Course Vital Signs: Vital signs: Vital Signs Temperature 97.9 F 07/23/23 18:42 Pulse Rate 78 07/23/23 18:42 Respiratory Rate 16 07/23/23 18:42 Blood Pressure 84/52 07/23/23 18:42 Pulse Oximetry 98 07/23/23 18:42 Oxygen Delivery Me thod Room Air 07/23/23 18:42 MDM - Headache Medical Decision Making 28-year-old female comes in today with headache and dental infection. On exam patient appears unwell but not toxic. Patient does have some mild swelling to the lower right jaw. Pupils are equal and reactive. Lungs are clear to auscultation. No meningeal signs are noted. Abdomen soft nontender. Vital signs are normal except for some mild hypotension. Differential diagnosis includes but not limited to dental infection, migraine headache, malingering, dehydration. CBC and CMP were unremarkable. CRP was normal. CT of the head showed no abscess or other intracranial process. Patient resolution of headache after treatment with IV fluids, Reglan, and ketorolac. Patient was given dexamethasone and clindamycin for dental pain and swelling. Patient will be continued on clindamycin and ibuprofen for dental pain. Recommend follow-up with dentist for further evaluation and treatment. Recommend return to the ED for new concerns. Lab Data 07/23/23 18:58 07/23/23 18:[address] 07/23/23 18:58 IMPRESSION: No acute intracranial abnormality. Laboratory Results WBC 10.01 10^3/uL (3.29-11.43) 07/23/23 18:58 RBC 4.62 10^6/uL (3.85-5.65) 07/23/23 18:58 Hgb 13.90 g/dL (11.27-16.99) 07/23/23 18:58 Hct 41.8 % (36-47) 07/23/23 18:58 MCV 90.5 fl (85-98) 07/23/23 18:58 MCH 30.1 pg (27-33) 07/23/23 18:58 MCHC 33.3 g/dL (30-55) 07/23/23 18:58 RDW 12.5 % (12.1-15.1) 07/23/23 18:58 Plt Count 226 10^3/cmm (157-399) 07/23/23 18:58 MPV 11.3 fL (7.4-10.4) H 07/23/23 18:58 Neut % (Auto) 59.8 % 07/23/23 18:58 Lymph % (Auto) 30.8 % 07/23/23 18:58 [place] % (Auto) 7.9 % 07/23/23 18:58 Eos % (Auto) 1.0 % 07/23/23 18:58 Baso % (Auto) 0.2 % 07/23/23 18:58 Neut # (Auto) 5.99 10^3/uL (1.8-7.7) 07/23/23 18:58 Lymph # (Auto) 3.1 10^3/uL (0.8-4.8) 07/23/23 18:58 [place] # (Auto) 0.8 10^3/uL (0.2-0.9) 07/23/23 18:58 Eos # (Auto) 0.1 10^3/uL (0.0-0.8) 07/23/23 18:58 Baso # (Auto) 0.0 10^3/uL (0.0-0.1) 07/23/23 18:58 Nucleated RBC % (auto) 0 % 07/23/23 18:58 Nucleated RBCs # 0.0 /100WBC 07/23/23 18:58 Sodium 139 mmol/L (136-145) 07/23/23 18:58 Potassium 3.7 mmol/L (3.5-5.1) 07/23/23 18:58 Chloride 101 mmol/L (98-107) 07/23/23 18:58 Carbon Dioxide 25 mmol/L (22-29) 07/23/23 18:58 Anion Gap 16.7 (5-19) 07/23/23 18:58 BUN 14 mg/dL (6-20) 07/23/23 18:58 Creatinine 0.8 mg/dL (0.5-0.9) 07/23/23 18:58 GFR Calculation 86.7 mL/min (90-130) L 07/23/23 18:58 Glucose 128 mg/dL (65-115) H 07/23/23 18:58 Calculated Osmolality 290 mOsm/kg (285-295) 07/23/23 18:58 Lactic Acid 1.5 mmol/L (0.5-2.2) 07/23/23 18:58 Calcium 9.5 mg/dL (8.5-10.5) 07/23/23 18:58 Total Bilirubin 0.2 mg/dL (0.15-1.2) 07/23/23 18:58 AST 24 U/L (0-32) 07/23/23 18:58 ALT 12 U/L (0-33) 07/23/23 18:58 Alkaline Phosphatase 68 U/L (35-105) 07/23/23 18:58 C-Reactive Protein 3.0 mg/L (0.0-4.9) 07/23/23 18:58 Total Protein 7.5 g/dL (6.6-8.7) 07/23/23 18:58 Albumin 4.4 g/dL (3.5-5.2) 07/23/23 18:58 Globulin 3.1 g/dL (1.3-4.6) 07/23/23 18:58 All radiology interpretation(s) finalized by discharge Discharge Plan Discharge Patient Disposition: Home Clinical Impression: Impacted third molar tooth Migraine Qualifiers: Migraine type: unspecified Status migrainosus presence: without status migrainosus Intractability: intractable Qualified Code(s): G43.919 - Migraine, unspecified, intractable, without status migrainosus Condition: Stable Prescriptions: New clindamycin HCl 300 mg capsule 300 mg PO Q6H 7 Days Qty: 28 0RF ibuprofen 600 mg tablet 600 mg PO Q6H PRN (Reason: fever or pain) Qty: 60 0RF No Action sulfamethoxazole-trimethoprim [Bactrim DS] 800-160 mg tablet 1 tab PO Q12H Qty: 14 0RF quetiapine 25 mg tablet 25 mg PO BEDTIME Qty: 30 3RF sertraline 50 mg tablet 25 mg PO DAILY Qty: 30 3RF ibuprofen 800 mg tablet 800 mg PO TID Qty: 60 0RF hydrocodone-acetaminophen 5-325 mg Tablet 1 tab PO Q6H PRN (Reason: Moderate To Severe Pain) Qty: 20 0RF ferrous sulfate 325 mg (65 mg iron) tablet 325 mg PO BID Qty: 30 0RF prenat vit 15-[id number]-om3,6 1 tab PO DAILY Discharge Orders: Discharge ED (Routine); Ordered 07/23/23 Ordered By: Mahamed Sibley Discharge Diet: Usual diet Discharge Activity: Increase activity as tolerated Patient Instructions: Toothache (ED) Activity Restrictions/Additional Instructions: Home and rest. Drink plenty of water and fluids. Use acetaminophen and ibuprofen to help control pain. Use ice or heat for further pain relief. Take antibiotics as directed. Follow-up with primary care for further instructions. Return to ED for new concerns. 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
[2023-07-23] MEDS: ketorolac 30 mg/mL INJ 15 MG IVP (19:02)
[2023-07-23] MEDS: sodium chloride 0.9% 1,000 ML 999 ML IV (19:02)
[2023-07-23] MEDS: metoclopramide 5 mg/mL SDV 2 mL 10 MG IVP (19:02)
[2023-07-23 19:04] LABS: Basophils % 0.2 %; Eosinophils # 0.1 10^3/uL (0.0-0.8); Hematocrit 41.8 % (36-47); Lymphocytes # 3.1 10^3/uL (0.8-4.8); Lymphocytes % 30.8 %; Mean Corpuscular HGB Conc 33.3 g/dL (30-55); Mean Corpuscular Hemoglobin 30.1 pg (27-33); Mean Corpuscular Volume 90.5 fl (85-98); Mean Platelet Volume 11.3 fL (7.4-10.4); Monocytes # 0.8 10^3/uL (0.2-0.9); Monocytes % 7.9 %; Neutrophils # 5.99 10^3/uL (1.8-7.7); Neutrophils % 59.8 %; Nucleated Red Blood Cells % 0 %; Platelet Count 226 10^3/cmm (157-399); Red Blood Count 4.62 10^6/uL (3.85-5.65); Red Cell Distribution Width 12.5 % (12.1-15.1); White Blood Count 10.01 10^3/uL (3.29-11.43)
[2023-07-23] MEDS: diphenhydrAMINE 50 mg/mL SDV 1mL 12.5 MG IVP (19:06)
[2023-07-23] MEDS: dexamethasone 10 mg/mL INJ IVP (19:08)
[2023-07-23] MEDS: clindamycin 600 MG/50 ML PREMIX 100 MG IV (19:08)
[2023-07-23 19:28] LABS: Alanine Aminotransferase 12 U/L (0-33); Albumin Level 4.4 g/dL (3.5-5.2); Alkaline Phosphatase 68 U/L (35-105); Anion Gap 16.7 (5-19); Aspartate Amino Transferase 24 U/L (0-32); Blood Urea Nitrogen 14 mg/dL (6-20); Calcium 9.5 mg/dL (8.5-10.5); Carbon Dioxide 25 mmol/L (22-29); Chloride 101 mmol/L (98-107); Globulin 3.1 g/dL (1.3-4.6); Glomerular Filtration Rate 86.7 mL/min (90-130); Glucose 128 mg/dL (65-115); Osmolality Calculated 290 mOsm/kg (285-295); Potassium 3.7 mmol/L (3.5-5.1); Sodium 139 mmol/L (136-145); Total Bilirubin 0.2 mg/dL (0.15-1.2); Total Protein 7.5 g/dL (6.6-8.7)
[2023-07-23 19:29] LABS: Lactic Sepsis W/Reflex 1.5 mmol/L (0.5-2.2)
[2023-07-23 20:38] VITALS: BP 84/52; PULSE 78; RESP 16; TEMP 36.6; O2SAT 98
== END 2023-07-23 20:41 | disposition home or self-care (01) ==
PROVIDERS: Emergency Provider Nurse Practitioner Family
DX: K01.1 Impacted teeth (principal); G43.919 Migraine, unspecified, intractable, without status migrainosus
CPT/HCPCS: 70450; 80053; 83605; 85025; 86140; 96361; 96365; 96375; 99285; J1100; J1200; J1885; J2765; J3490; J7030

== ENCOUNTER 2024-11-10 11:17 | Emergency (ER) | payer MEDICAID, SELFPAY ==
[2024-11-10 11:32] VITALS: BP 107/71; PULSE 77; TEMP 36.9; O2SAT 98; BMI 23.0
--- NOTE | 2024-11-10 12:06 | ED_ITS ---
HPI - Animal Bite General: Chief Complaint: Animal Bite Stated Complaint: cat bite R thumb Time Seen by Provider: 11/10/24 11:57 Source: patient Mode of arrival: ambulatory Limitations: no limitations History of Present Illness: Patient is a 29-year-old female presents to ED today for evaluation of a cat bite to her right thumb that she sustained approximately 3 to 4 days ago after she was holding a cat and states her dog was trying to get the animal thus causing the cat to bite her. She states the cat is hers and she has had it since a kitten. Not sure on rabies immunization status. Her last tetanus is unknown. She has noticed a small amount of redness to the bite. MD complaint: animal bite Onset (ago): day(s) Animal: cat Description of animal: household pet and appeared well Mechanism: bite Location - Extremities: Right: hand (thumb) Context: animals fighting Associated symptoms: Reports no associated symptoms; Deny chills or fever(s) Treatments prior to arrival: irrigation Related Data Previous Rx's ?Medication ?Instructions ?Recorded cefuroxime axetil 500 mg tablet 500 mg PO BID 7 days # 14 tabs 11/10/24 metronidazole 500 mg tablet 500 mg PO Q8H 7 days #21 t abs 11/10/24 Allergies Allergy/AdvReac Type Severity Reaction Status Date / Time amoxicillin (From Augmentin) Allergy Unknown Verified 11/10/24 11:37 clavulanic acid (From Allergy Unknown Verified 11/10/24 11:37 Augmentin) Review of Systems Const: Denies: fever(s), chills, body aches, fatigue or malaise Musc: Reports: extremity pain (R thumb); Denies: extremity swelling, joint pain or joint swelling Skin/Breast: Reports: other (cat bite R thumb) Neuro: Denies: numbness in extremities, weakness in extremities or sensory changes PFSH ED PFSH: Surgical History History of tubal ligation 08/05/22 - Dr Tanner Hx of tonsillectomy Social History Substance/Drug Use: former Physical Exam Const: COMMON NORMALS: no acute distress, average body habitus, no limitations, healthy appearing, alert and well nourished Extremity: COMMON NORMALS: full ROM and capillary refill normal GENERAL: Yes normal exam except as noted RIGHT UPPER EXTREMITY: Yes hand & digits (3 puncture sanders distal R thumb; very scant erythema) Right hand and digits: Yes ROM exam (normal), Yes neurovascular exam (normal), Yes tendon exam (normal) and Yes other (no edema, streaking, or drainage) Neuro: COMMON NORMALS: moves all extremities, no focal motor deficits and no sensory deficits noted SENSORIUM/ORIENTATION: Yes alert Skin: NARRATIVE SKIN EXAM: see above Course Vital Signs: Vital signs: Vital Signs Temperature 98.4 F 11/10/24 11:32 Pulse Rate 77 11/10/24 11:32 Blood Pressure 107/71 11/10/24 11:32 Pulse Oximetry 98 11/10/24 11:32 Oxygen Delivery Me thod Room Air 11/10/24 11:32 MDM - Animal Bite Medical Decision Making Tetanus will be updated. She will be placed on antibiotics. She reports an allergy to Augmentin thus will be placed on Cefuroxime and Flagyl for coverage. Patient can quarantine or animal over the next 10 days to monitor for mental status changes. She does not require rabies PEP at this time. Differential Diagnosis Likely cat bite Medical Records I reviewed the patient's medical records. No radiology studies performed this visit Discharge Plan Discharge Patient Disposition: Home Clinical Impression: Cat bite of right thumb Qualifiers: Encounter type: initial encounter Qualified Code(s): S61.051A - Open bite of right thumb without damage to nail, initial encounter Condition: Stable Prescriptions: New cefuroxime axetil 500 mg tablet 500 mg PO BID 7 Days Qty: 14 0RF metronidazole 500 mg tablet 500 mg PO Q8H 7 Days Qty: 21 0RF Discharge Orders: Discharge ED (Routine); Ordered 11/10/24 Ordered By: Lois Oneil Referrals: Santosh Garcia MD [Primary Care Provider, Family Practice] Patient Instructions: Animal Bite (ED) Activity Restrictions/Additional Instructions: As we discussed, your tetanus was updated. We will place you on antibiotics to cover for cat bite. You need to start antibiotics immediately. Monitor for signs of infection such as redness, swelling, streaking up your hand or arm, fevers, worsening pain, or any other concerns you may have. Please seek medical re-evaluation if these occur. As we discussed, please quarantine your animal over the next 10 days to monitor for mental status changes. Please seek medical re-examination for yourself as well as veterinary care for your cat if this occurs. At this time we can safely hold off on rabies post-exposure prophylaxis. Print Language: Azeri Coding Level of Care Code ED Enrollment Services Dean for Sin Peterson
== END 2024-11-10 12:28 | disposition home or self-care (01) ==
PROVIDERS: Emergency Provider Physician Assistant; PCP Family Medicine
DX: S61.051A Open bite of right thumb without damage to nail, initial encounter (principal); W55.01XA Bitten by cat, initial encounter
CPT/HCPCS: 90715; 99283